=== PATIENT | male | born 1955 | race Caucasian/White ===

== ENCOUNTER 2018-04-19 07:54 | Day surgery (SDC) | payer MEDICARE, OTHER ==
[2018-04-19] MEDS ORDERED: Lactated Ringers 1,000 ML IV SCH (08:00)
[2018-04-19] MEDS ORDERED: Sodium Chloride 0.9% 10 ML Syringe FLUSH PRN (08:00)
[2018-04-19] MEDS ORDERED: Propofol 200 MG/20 ML SDV IV ONE (09:05)
--- NOTE | 2018-04-19 09:37 | PCM.OPNOTE ---
- General Post-Op/Procedure Note Date of Surgery/Procedure: 04/19/18 Operative Procedure(s): c scope with bx Findings: cecal and descending colon polyp sigmoid diverticulosis Pre Op Diagnosis: hx of colon polyps Post-Op Diagnosis: cecal and descending colon polyp. sigmoid diverticulosis Anesthesia Technique: MAC Primary Surgeon: Chin Wilkes Anesthesia Provider: Shashi Rossi Pathology: cecal and descending colon polyp Complications: None Condition: Good Free Text/Narrative:: see dictation
[2018-04-19 14:29] VITALS: BP 133/73
--- NOTE | 2018-04-19 16:20 | OR ---
DATE OF OPERATION: 04/19/2018 SURGEON: Chin Wilkes MD PROCEDURES PERFORMED: Colonoscopy with cold loop and hot loop snare biopsy. PREOPERATIVE DIAGNOSIS: Personal history of colon polyps. POSTOPERATIVE DIAGNOSIS: Cecal and descending colon polyp. INDICATIONS FOR PROCEDURE: This is a 63-year-old white male who presents for a followup colonoscopy due to his previous history of adenomatous colon polyps. DESCRIPTION OF PROCEDURE: After an excellent IV sedation was administered, digital rectal exam was performed. No marked abnormality was noted. Flexible colonoscope was inserted and advanced to the cecum without difficulty. The prep was excellent. The following findings were noted: Ascending colon and cecum, small polypoid lesion, biopsied with cold loop snare and sent for permanent. Transverse colon, unremarkable. Descending colon, near the junction with the sigmoid, a polypoid lesion, biopsied with the hot loop snare and sent for permanent. Sigmoid was unremarkable. Rectum and anus were unremarkable. Colon was deflated. Scope was removed. Patient tolerated the procedure well, taken to recovery in good condition. Results by letter. /[id number] /MODL
== END 2018-04-19 10:45 | disposition home or self-care (01) ==
LOC: FB.SDS 07:54
PROVIDERS: ATTEND Surgery
DX: Z12.11 Encounter for screening for malignant neoplasm of colon (principal); Z86.010 Personal history of colon polyps; K57.30 Diverticulosis of large intestine without perforation or abscess without bleeding; D12.0 Benign neoplasm of cecum; D12.4 Benign neoplasm of descending colon; I10 Essential (primary) hypertension; F17.210 Nicotine dependence, cigarettes, uncomplicated; E78.2 Mixed hyperlipidemia; Z79.82 Long term (current) use of aspirin; Z79.02 Long term (current) use of antithrombotics/antiplatelets; Z79.899 Other long term (current) drug therapy
CPT/HCPCS: 00812-QZ; 88305; J2704; J7120

== ENCOUNTER 2018-10-27 14:17 | Inpatient (IN) | payer MEDICARE, MEDICAID ==
[2018-10-27] MEDS ORDERED: Albuterol/Ipratropium 3.0-0.5 MG/3 ML Neb Soln NEB ONE (14:33)
[2018-10-27] MEDS ORDERED: methylPREDNISolone Sodium Succinate 125 MG/2 ML SDV IVPUSH ONE (14:33)
--- NOTE | 2018-10-27 14:34 | EDM.PDOC ---
ED HPI GENERAL MEDICAL PROBLEM - General Stated Complaint: SOB, WEAKNESS Time Seen by Provider: 10/27/18 14:17 Source of Information: Reports: Patient, EMS History Limitations: Reports: Respiratory Distress - History of Present Illness INITIAL COMMENTS - FREE TEXT/NARRATIVE: 63 y.o.w.m came to the ed due to worsening of his SOB. Pt is on Albuterol inhaler, which does not help. He has no family. Poor historian. No N/V/D, no trauma. No other acute med. issues. BP 91/61 pulse ox 91% on RA Temp 36.8 Pulse 71 RR 18 Onset Date: 10/23/18 Onset Time: 09:00 Duration: Day(s):, Getting Worse Location: Reports: Chest Quality: Reports: Same as Previous Episode Severity: Moderate Improves with: Reports: Medication Worsens with: Reports: Breathing Context: Reports: Other (COPD) Associated Symptoms: Reports: Shortness of Breath - Related Data Allergies Allergy/AdvReac Type Severity Reaction Status Date / Time No Known Allergies Allergy Verified 10/27/18 20:41 Home Meds: Home Meds Aspirin [Ecotrin] 81 mg PO DAILY 03/14/14 [History] Cholecalciferol (Vitamin D3) [Vitamin D3] 5,000 unit PO DAILY 03/14/14 [History] Clopidogrel Bisulfate [Clopidogrel] 75 mg PO DAILY 03/14/14 [History] Gabapentin 300 mg PO DAILY 03/14/14 [History] atorvaSTATin [Lipitor] 20 mg PO BEDTIME 03/28/15 [History] Losartan/Hydrochlorothiazide [Losartan-HCTZ 100-25 MG] 0.5 each PO DAILY [History] Metoprolol Succinate [Toprol XL] 25 mg PO DAILY 04/18/18 [History] Furosemide [Lasix] 20 mg PO DAILY 10/27/18 [History] Past Medical History HEENT History: Reports: Hard of Hearing, Impaired Vision Cardiovascular History: Reports: High Cholesterol, Hypertension Respiratory History: Reports: None Gastrointestinal History: Reports: None, Colon Polyp Genitourinary History: Reports: None 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 Musculoskeletal History: Reports: Back Pain, Chronic, Osteoarthritis Other Musculoskeletal History: SPINAL STENOSIS Neurological History: Reports: None, CVA Psychiatric History: Reports: None Endocrine/Metabolic History: Reports: None Hematologic History: Reports: None Immunologic History: Reports: None Oncologic (Cancer) History: Reports: None Dermatologic History: Reports: None - Past Surgical History Head Surgeries/Procedures: Reports: None HEENT Surgical History: Reports: Cataract Surgery, Eye Surgery GI Surgical History: Reports: Colonoscopy Musculoskeletal Surgical History: Reports: Hip Replacement Social & Family History - Caffeine Use Caffeine Use: Reports: Coffee, Soda ED ROS GENERAL - Review of Systems Review Of Systems: Unable To Obtain ED EXAM, GENERAL - Physical Exam Exam: See Below Exam Limited By: Respiratory Distress General Appearance: Alert, WD/WN, Cachetic Eye Exam: Bilateral Eye: Normal Inspection Ears: Normal External Exam, Normal Canal Ear Exam: Bilateral Ear: Auricle Normal Nose: Normal Inspection, Normal Mucosa, No Blood Throat/Mouth: Normal Inspection Head: Atraumatic, Normocephalic Neck: Normal Inspection, Supple, Non-Tender, Full Range of Motion Respiratory/Chest: No Respiratory Distress Cardiovascular: Normal Peripheral Pulses, Regular Rate, Rhythm, No Edema, No JVD , No Murmur Peripheral Pulses: 2+: Brachial (L) GI/Abdominal: Normal Bowel Sounds (Male) Exam: Deferred Rectal (Males) Exam: Deferred Back Exam: Normal Inspection, Full Range of Motion Extremities: Normal Inspection, Normal Range of Motion, Non-Tender Neurological: Alert, Oriented, CN II-XII Intact, Abnormal Gait Psychiatric: Normal Affect, Normal Mood Skin Exam: Warm, Dry, Intact, Normal Color Lymphatic: No Adenopathy Course - Vital Signs Text/Narrative:: 63 y.o.w.m came to the ed due to worsening of his SOB. Pt is on Albuterol inhaler, which does not help. He has no family. Poor historian. No N/V/D, no trauma. No other acute med. issues. BP 91/61 pulse ox 91% on RA Temp 36.8 Pulse 71 RR 18 PE: Cachectic 63 y.o.w.m with SOB Imaging: COPD Labs: CBC nl except MCV 100 Na 129 Cl 89 K 3.3 BUN 53 Cr 2.3 GFR 29 Impression: COPD exacerbation, Low sodium CRI Tx: Duo Neb, Solumedrol Reexam: Minimal improvement 4.31 pm Consultation: Dr. Moore, Hospitalist: Will see the pt in the ED, accepted the pt and will write the admit orders. Plan: Admit to [facility] Last Recorded V/S: Last Vital Signs Temp 36.2 C 10/29/18 20:10 Pulse 98 10/29/18 20:10 Resp 24 H 10/29/18 20:10 BP 103/64 10/29/18 20:10 Pulse Ox 95 10/29/18 20:10 - Orders/Labs/Meds Orders: Medication Orders Albuterol/Ipratropium (Duoneb 3.0-0.5 Mg/3 Ml) 3 ml NEB QID PRN PRN Reason: Shortness of Breath Last Admin: 10/29/18 14:13 Dose: 3 ml Admin: 10/29/18 09:25 Dose: 3 ml Admin: 10/28/18 13:59 Dose: 3 ml Aspirin (Halfprin) 81 mg PO DAILY [facility] Last Admin: 10/29/18 08:45 Dose: 81 mg Admin: 10/28/18 09:19 Dose: 81 mg Atorvastatin Calcium (Lipitor) 20 mg PO BEDTIME [facility] Last Admin: 10/29/18 20:13 Dose: 20 mg Admin: 10/28/18 20:52 Dose: 20 mg Admin: 10/27/18 22:58 Dose: Cholecalciferol (Vitamin D3) 5,000 units PO DAILY [facility] Last Admin: 10/29/18 09:08 Dose: 5,000 units Admin: 10/28/18 09:19 Dose: 5,000 units Clopidogrel Bisulfate (Plavix) 75 mg PO DAILY [facility] Last Admin: 10/29/18 08:45 Dose: 75 mg Admin: 10/28/18 09:19 Dose: 75 mg Gabapentin (Neurontin) 300 mg PO DAILY [facility] Last Admin: 10/29/18 08:45 Dose: 300 mg Admin: 10/28/18 09:19 Dose: 300 mg Azithromycin 500 mg/ Sodium (Chloride) 250 mls @ 250 mls/hr IV Q24H [facility] Last Admin: 10/29/18 18:37 Dose: 250 mls/hr Melatonin (Melatonin) 9 mg PO BEDTIME [facility] Last Admin: 10/29/18 20:14 Dose: 9 mg Methylprednisolone Sodium Succinate (Solu-Medrol) 125 mg IVPUSH Q8H [facility] Last Admin: 10/29/18 23:00 Dose: 125 mg Admin: 10/29/18 15:35 Dose: 125 mg Admin: 10/29/18 06:06 Dose: 125 mg Admin: 10/28/18 22:37 Dose: 125 mg Admin: 10/28/18 16:08 Dose: 125 mg Admin: 10/28/18 06:21 Dose: 125 mg Admin: 10/27/18 23:14 Dose: 125 mg Potassium Chloride (Klor-Con M20) 20 meq PO DAILY [facility] Last Admin: 10/29/18 09:29 Dose: 20 meq Sodium Chloride (Saline Flush) 10 ml FLUSH ASDIRECTED PRN PRN Reason: Keep Vein Open Last Admin: 10/29/18 19:58 Dose: 10 ml Admin: 10/29/18 18:40 Dose: 10 ml Admin: 10/29/18 15:40 Dose: 10 ml Admin: 10/28/18 16:10 Dose: 10 ml Admin: 10/27/18 15:15 Dose: 10 ml Labs: Laboratory Tests 10/27/18 10/27/18 10/27/18 Range/Units 14:50 14:50 14:50 WBC 11.3 (4.5-12.0) X10-3/uL RBC 4.58 (4.30-5.75) x10(6)uL Hgb 15.3 (13.5-17.8) g/dL Hct 46.0 (30.0-51.3) % MCV 100.5 H (80-96) fL MCH 33.4 (27.7-33.6) pg MCHC 33.2 (32.2-35.4) g/dL RDW 14.3 (11.5-15.5) % Plt Count 222 (125-369) X10(3)uL MPV 8.7 (7.4-10.4) fL Neut % (Auto) 82.3 H (46-82) % Lymph % (Auto) 8.2 L (13-37) % [place] % (Auto) 8.6 (4-12) % Eos % (Auto) 0 L (1.0-5.0) % Baso % (Auto) 1 (0-2) % Neut # (Auto) 9.3 H (1.6-8.3) # Lymph # (Auto) 0.9 (0.6-5.0) # [place] # (Auto) 1.0 (0.0-1.3) # Eos # (Auto) 0.0 (0.0-0.8) # Baso # (Auto) 0.1 (0.0-0.2) # PT 9.7 (8.7-11.1) INR 1.00 (0.89-1.13) Sodium 129 L (135-145) mmol/L Potassium 3.3 L (3.5-5.3) mmol/L Chloride 89 L* (100-110) mmol/L Carbon Dioxide 33 H (21-32) mmol/L BUN 58 H (7-18) mg/dL Creatinine 2.3 H* (0.70-1.30) mg/dL Est Cr Clr Drug Dosing TNP Estimated GFR (MDRD) 29 L (>60) BUN/Creatinine Ratio 25.2 H (9-20) Glucose 124 H (80-116) mg/dL Calcium 9.0 (8.6-10.2) mg/dL Magnesium 2.0 (1.8-2.5) mg/dL Meds: Medications Generic Name Dose Route Start Last Admin Trade Name Freq PRN Reason Stop Dose Admin Albuterol/Ipratropium 3 ml 10/27/18 22:27 10/29/18 14:13 Duoneb 3.0-0.5 Mg/3 Ml NEB 3 ml QID PRN Administration Shortness of Breath Aspirin 81 mg 10/28/18 09:00 10/29/18 08:45 Halfprin PO 81 mg DAILY [facility] Administration Atorvastatin Calcium 20 mg 10/27/18 23:00 10/29/18 20:13 Lipitor PO 20 mg BEDTIME [facility] Administration Cholecalciferol 5,000 units 10/28/18 09:00 10/29/18 09:08 Vitamin D3 PO 5,000 units DAILY [facility] Administration Clopidogrel Bisulfate 75 mg 10/28/18 09:00 10/29/18 08:45 Plavix PO 75 mg DAILY [facility] Administration Gabapentin 300 mg 10/28/18 09:00 10/29/18 08:45 Neurontin PO 300 mg DAILY [facility] Administration Azithromycin 500 mg/ Sodium 250 mls @ 250 mls/hr 10/29/18 18:00 10/29/18 18: 37 Chloride IV 250 mls/hr Q24H [facility] Administration Melatonin 9 mg 10/29/18 21:00 10/29/18 20:14 Melatonin PO 9 mg BEDTIME [facility] Administration Methylprednisolone Sodium Succinate 125 mg 10/27/18 23:00 10/29/18 23:00 Solu-Medrol IVPUSH 125 mg Q8H [facility] Administration Potassium Chloride 20 meq 10/29/18 09:00 10/29/18 09:29 Klor-Con M20 PO 20 meq DAILY [facility] Administration Sodium Chloride 10 ml 10/27/18 15:15 10/29/18 19:58 Saline Flush FLUSH 10 ml ASDIRECTED PRN Administration Keep Vein Open Discontinued Medications Generic Name Dose Route Start Last Admin Trade Name Freq PRN Reason Stop Dose Admin Albuterol/Ipratropium 3 ml 10/27/18 14:33 10/27/18 15:17 Duoneb 3.0-0.5 Mg/3 Ml NEB 10/27/18 14:34 3 ml ONETIME ONE Administration Albuterol/Ipratropium 3 ml 10/27/18 21:00 10/27/18 21:03 Duoneb 3.0-0.5 Mg/3 Ml NEB 3 ml QIDRT [facility] Administration Atorvastatin Calcium 20 mg 10/27/18 21:00 10/27/18 21:04 Lipitor PO Not Given BEDTIME [facility] Iopamidol 75 ml 10/29/18 10:46 10/29/18 11:11 Isovue-370 (76%) IV 10/29/18 10:47 75 ml ASDIRECTED ONE Administration Methylprednisolone Sodium Succinate 125 mg 10/27/18 14:33 10/27/18 15:25 Solu-Medrol IVPUSH 10/27/18 14:34 125 mg ONETIME ONE Administration Methylprednisolone Sodium Succinate 125 mg 10/27/18 16:45 10/27/18 18:55 Solu-Medrol IVPUSH Not Given Q8H [facility] Metoprolol Succinate 25 mg 10/28/18 09:00 Toprol Xl PO DAILY [facility] Non-Formulary Medication 1,000 unit 10/28/18 09:00 Cholecalciferol (Vitamin D3) [Vitamin D3] PO DAILY [facility] Departure - Departure Time of Disposition: 22:00 Disposition: Admitted As Inpatient 65 Condition: Fair Clinical Impression: COPD (chronic obstructive pulmonary disease) case management patient - Discharge Information
[2018-10-27] MEDS: Sodium Chloride 0.9% 10 ML Syringe FLUSH PRN (15:15)
--- NOTE | 2018-10-27 15:34 | CR ---
INDICATION: Short of breath. CHEST: Two AP upright portable views of the chest were obtained 10/27/18 and compared with 03/17/14 and 03/14/14. The heart remains normal in size and shape. The aorta is calcified in the arch area. Flattened diaphragm leaves and hyperaeration suggest COPD. An active infiltrate or effusion was not identified. Buttons are noted overlying the chest. Apparent old healed fracture site proximal humerus. IMPRESSION: 1. No acute process. 2. COPD. 3. ASD aorta. MTDD
[2018-10-27] MEDS ORDERED: methylPREDNISolone Sodium Succinate 125 MG/2 ML SDV IVPUSH SCH (16:45)
[2018-10-27] MEDS ORDERED: atorvaSTATin 40 MG Tab**OWN MED PO SCH (21:00)
[2018-10-27] MEDS ORDERED: Albuterol/Ipratropium 3.0-0.5 MG/3 ML Neb Soln NEB SCH (21:00)
[2018-10-27] MEDS: atorvaSTATin 20 MG Tab PO SCH (22:58)
[2018-10-27] MEDS: methylPREDNISolone Sodium Succinate 125 MG/2 ML SDV IVPUSH SCH (23:14)
[2018-10-28] MEDS: methylPREDNISolone Sodium Succinate 125 MG/2 ML SDV IVPUSH SCH ×3 (06:21→22:37)
--- NOTE | 2018-10-28 08:52 | PCM.HP ---
H&P History of Present Illness - General Date of Service: 10/28/18 Admit Problem/Dx: Admission Diagnosis/Problem Admission Diagnosis/Problem COPD with acute lower respiratory infection Source of Information: Patient History Limitations: Reports: No Limitations - History of Present Illness Initial Comments - Free Text/Narative: Tawana is a 63-year-old male who came to the ER with shortness of breath for a couple days. Associated cough, worse with any ambulation but no chest pain. He has a history of COPD which has been relatively stable until now. He's never needed oxygen. He also has a history of a stroke years ago with no residual neurologic deficits. He has hypertension, and also tobacco abuse,but quit smoking 2 weeks ago. He denies any fever or chills.Tawana lives alone. - Related Data Allergies/Adverse Reactions: Allergies Allergy/AdvReac Type Severity Reaction Status Date / Time No Known Allergies Allergy Verified 10/27/18 20:41 Home Medications: Home Meds Aspirin [Ecotrin] 81 mg PO DAILY 03/14/14 [History] Cholecalciferol (Vitamin D3) [Vitamin D3] 5,000 unit PO DAILY 03/14/14 [History] Clopidogrel Bisulfate [Clopidogrel] 75 mg PO DAILY 03/14/14 [History] Gabapentin 300 mg PO DAILY 03/14/14 [History] atorvaSTATin [Lipitor] 20 mg PO BEDTIME 03/28/15 [History] Losartan/Hydrochlorothiazide [Losartan-HCTZ 100-25 MG] 0.5 each PO DAILY [History] Metoprolol Succinate [Toprol XL] 25 mg PO DAILY 04/18/18 [History] Furosemide [Lasix] 20 mg PO DAILY 10/27/18 [History] Past Medical History HEENT History: Reports: Hard of Hearing, Impaired Vision Cardiovascular History: Reports: High Cholesterol, Hypertension Respiratory History: Reports: COPD Gastrointestinal History: Reports: None, Colon Polyp Genitourinary History: Reports: None 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 Musculoskeletal History: Reports: Back Pain, Chronic, Osteoarthritis Other Musculoskeletal History: SPINAL STENOSIS Neurological History: Reports: CVA Psychiatric History: Reports: None Endocrine/Metabolic History: Reports: None Hematologic History: Reports: Blood Transfusion(s) Immunologic History: Reports: None Oncologic (Cancer) History: Reports: None Dermatologic History: Reports: None - Infectious Disease History Infectious Disease History: Reports: Chicken Pox - Past Surgical History Head Surgeries/Procedures: Reports: None HEENT Surgical History: Reports: Cataract Surgery, Eye Surgery, Oral Surgery Respiratory Surgical History: Reports: Lung Biopsies GI Surgical History: Reports: Colonoscopy Male Surgical History: Reports: Circumcision Musculoskeletal Surgical History: Reports: Hip Replacement Social & Family History - Family History Family Medical History: Noncontributory - Tobacco Use Smoking Status *Q: Current Every Day Smoker Years of Tobacco use: 50 Packs/Tins Daily: 1 Used Tobacco, but Quit: No Month/Year Tobacco Last Used: September 2018 Second Hand Smoke Exposure: No - Caffeine Use Caffeine Use: Reports: Coffee, Soda - Recreational Drug Use Recreational Drug Use: No H&P Review of Systems - Review of Systems: Review Of Systems: ROS reveals no pertinent complaints other than HPI. Exam - Exam Exam: See Below - Vital Signs Vital Signs: Last Vital Signs Temp 98.2 F 10/28/18 04:00 Pulse 94 10/28/18 04:00 Resp 20 10/28/18 04:00 BP 100/65 10/28/18 04:00 Pulse Ox 93 L 10/28/18 04:00 Weight: 58.105 kg - Exam Quality Assessment: Supplemental Oxygen General: Alert HEENT: PERRLA Neck: Supple Lungs: Crackles, Rhonchi Cardiovascular: Regular Rate, Regular Rhythm GI/Abdominal Exam: Normal Bowel Sounds, Soft, Non-Tender, No Organomegaly, No Distention, No Abnormal Bruit, No Mass, Pelvis Stable (Male) Exam: Deferred Rectal (Males) Exam: Deferred Back Exam: Normal Inspection, Full Range of Motion, NT Extremities: Normal Inspection, Normal Range of Motion, Non-Tender, No Pedal Edema, Normal Capillary Refill Skin: Warm, Dry, Intact Neurological: Cranial Nerves Intact, Reflexes Equal Bilateral Neuro Extensive - Mental Status: Alert, Oriented x3, Normal Mood/Affect, Normal Cognition Neuro Extensive - Motor, Sensory, Reflexes: CN II-XII Intact, Normal Gait, Normal Reflexes Psychiatric: Alert, Normal Affect, Normal Mood - Patient Data Lab Results Last 24 hrs: Laboratory Results - last 24 hr 10/27/18 10/27/18 10/27/18 Range/Units 14:50 14:50 14:50 WBC 11.3 (4.5-12.0) X10-3/uL RBC 4.58 (4.30-5.75) x10(6)uL Hgb 15.3 (13.5-17.8) g/dL Hct 46.0 (30.0-51.3) % MCV 100.5 H (80-96) fL MCH 33.4 (27.7-33.6) pg MCHC 33.2 (32.2-35.4) g/dL RDW 14.3 (11.5-15.5) % Plt Count 222 (125-369) X10(3)uL MPV 8.7 (7.4-10.4) fL Neut % (Auto) 82.3 H (46-82) % Lymph % (Auto) 8.2 L (13-37) % [place] % (Auto) 8.6 (4-12) % Eos % (Auto) 0 L (1.0-5.0) % Baso % (Auto) 1 (0-2) % Neut # (Auto) 9.3 H (1.6-8.3) # Lymph # (Auto) 0.9 (0.6-5.0) # [place] # (Auto) 1.0 (0.0-1.3) # Eos # (Auto) 0.0 (0.0-0.8) # Baso # (Auto) 0.1 (0.0-0.2) # Add Manual Diff Neutrophils % (Manual) (46-82) % Lymphocytes % (Manual) (13-37) % Monocytes % (Manual) (4-12) % Macrocytosis PT 9.7 (8.7-11.1) INR 1.00 (0.89-1.13) Sodium 129 L (135-145) mmol/L Potassium 3.3 L (3.5-5.3) mmol/L Chloride 89 L* (100-110) mmol/L Carbon Dioxide 33 H (21-32) mmol/L BUN 58 H (7-18) mg/dL Creatinine 2.3 H* (0.70-1.30) mg/dL Est Cr Clr Drug Dosing TNP Estimated GFR (MDRD) 29 L (>60) BUN/Creatinine Ratio 25.2 H (9-20) Glucose 124 H (80-116) mg/dL Calcium 9.0 (8.6-10.2) mg/dL Phosphorus (2.6-4.6) mg/dL Magnesium 2.0 (1.8-2.5) mg/dL Total Bilirubin (0.1-1.3) mg/dL AST (5-25) IU/L ALT (12-36) U/L Alkaline Phosphatase (56-112) IU/L Troponin I (<0.017-0.056) ng/mL Total Protein (6.0-8.0) g/dL Albumin (3.2-4.6) g/dL Globulin g/dL Albumin/Globulin Ratio 10/28/18 10/28/18 10/28/18 Range/Units 06:30 06:30 06:30 WBC 9.0 (4.5-12.0) X10-3/uL RBC 4.18 L (4.30-5.75) x10(6)uL Hgb 14.4 (13.5-17.8) g/dL Hct 41.9 (30.0-51.3) % MCV 100.1 H (80-96) fL MCH 34.3 H (27.7-33.6) pg MCHC 34.3 (32.2-35.4) g/dL RDW 14.3 (11.5-15.5) % Plt Count 231 (125-369) X10(3)uL MPV 8.4 (7.4-10.4) fL Neut % (Auto) (46-82) % Lymph % (Auto) (13-37) % [place] % (Auto) (4-12) % Eos % (Auto) (1.0-5.0) % Baso % (Auto) (0-2) % Neut # (Auto) (1.6-8.3) # Lymph # (Auto) (0.6-5.0) # [place] # (Auto) (0.0-1.3) # Eos # (Auto) (0.0-0.8) # Baso # (Auto) (0.0-0.2) # Add Manual Diff Yes Neutrophils % (Manual) 92 H (46-82) % Lymphocytes % (Manual) 7 L (13-37) % Monocytes % (Manual) 1 L (4-12) % Macrocytosis Few PT (8.7-11.1) INR (0.89-1.13) Sodium 132 L (135-145) mmol/L Potassium 3.4 L (3.5-5.3) mmol/L Chloride 92 L (100-110) mmol/L Carbon Dioxide 33 H (21-32) mmol/L BUN 60 H (7-18) mg/dL Creatinine 1.8 H (0.70-1.30) mg/dL Est Cr Clr Drug Dosing 34.07 Estimated GFR (MDRD) 38 L (>60) BUN/Creatinine Ratio 33.3 H (9-20) Glucose 180 H (80-116) mg/dL Calcium 8.9 (8.6-10.2) mg/dL Phosphorus 3.5 (2.6-4.6) mg/dL Magnesium 2.1 (1.8-2.5) mg/dL Total Bilirubin 0.7 (0.1-1.3) mg/dL AST 64 H (5-25) IU/L ALT 52 H (12-36) U/L Alkaline Phosphatase 73 (56-112) IU/L Troponin I < 0.017 L (<0.017-0.056) ng/mL Total Protein 7.6 (6.0-8.0) g/dL Albumin 2.9 L (3.2-4.6) g/dL Globulin 4.7 g/dL Albumin/Globulin Ratio 0.6 Result Diagrams: 10/28/18 06:30 10/28/18 06:30 Imaging Impressions Last 24 hrs: XC neg EKG INTERPRETATION Rhythm: NSR - Problem List (1) COPD (chronic obstructive pulmonary disease) SNOMED Code(s): 51057499 ICD Code: J44.9 - CHRONIC OBSTRUCTIVE PULMONARY DISEASE, UNSPECIFIED Status : Acute Current Visit: Yes Qualifiers: COPD type: COPD with acute exacerbation Qualified Code(s): J44.1 - Chronic obstructive pulmonary disease with (acute) exacerbation (2) H/O: CVA (cerebrovascular accident) SNOMED Code(s): 263957654 ICD Code: Z86.73 - PRSNL HX OF TIA (TIA), AND CEREB INFRC W/O RESID DEFICITS Status: Acute Current Visit: Yes (3) Tobacco user SNOMED Code(s): 531755854 ICD Code: Z72.0 - TOBACCO USE Status: Acute Current Visit: No (4) HTN, Essential hypertension SNOMED Code(s): 60384241 ICD Code: I10 - ESSENTIAL (PRIMARY) HYPERTENSION Status: Chronic Current Visit: No (5) Hyperlipidemia SNOMED Code(s): 63135037 ICD Code: E78.5 - HYPERLIPIDEMIA, UNSPECIFIED Status: Chronic Current Visit: No Problem List Initiated/Reviewed/Updated: Yes Orders Last 24hrs: Active Orders 24 hr Category Date Time Status Patient Status [ADT] Routine ADT 10/27/18 16:40 Active Height and Weight [RC] 06 Care 10/27/18 16:39 Active Intake and Output [RC] 06,14,22 Care 10/27/18 16:41 Active Oxygen Therapy [RC] PRN Care 10/27/18 16:40 Active RT Aerosol Therapy [RC] ASDIRECTED Care 10/27/18 14:33 Active Vital Signs [RC] 08,12,16,20,00,04 Care 10/27/18 16:40 Active Albuterol/Ipratropium [DuoNeb 3.0-0.5 MG/3 ML] Med 10/27/18 22:27 Active 3 ml NEB QID PRN Aspirin [Halfprin] Med 10/28/18 09:00 Active 81 mg PO DAILY Cholecalciferol (Vitamin D3) [Vitamin D3] Med 10/28/18 09:00 Active 1,000 unit PO DAILY Clopidogrel [Plavix] Med 10/28/18 09:00 Active 75 mg PO DAILY Gabapentin [Neurontin] Med 10/28/18 09:00 Active 300 mg PO DAILY Metoprolol Succinate [Toprol XL] Med 10/28/18 09:00 Active 25 mg PO DAILY Sodium Chloride 0.9% [Saline Flush] Med 10/27/18 15:15 Active 10 ml FLUSH ASDIRECTED PRN atorvaSTATin [Lipitor] Med 10/27/18 23:00 Active 20 mg PO BEDTIME methylPREDNISolone Sod Succ [Solu-MEDROL] Med 10/27/18 23:00 Active 125 mg IVPUSH Q8H Peripheral IV Insertion Adult [OM.PC] Routine Oth 10/27/18 15:15 Ordered Resuscitation Status Routine Resus Stat 10/27/18 16:39 Ordered Medication Orders Albuterol/Ipratropium (Duoneb 3.0-0.5 Mg/3 Ml) 3 ml NEB QID PRN PRN Reason: Shortness of Breath Aspirin (Halfprin) 81 mg PO DAILY [facility] Atorvastatin Calcium (Lipitor) 20 mg PO BEDTIME [facility] Last Admin: 10/27/18 22:58 Dose: Clopidogrel Bisulfate (Plavix) 75 mg PO DAILY [facility] Gabapentin (Neurontin) 300 mg PO DAILY [facility] Methylprednisolone Sodium Succinate (Solu-Medrol) 125 mg IVPUSH Q8H [facility] Last Admin: 10/28/18 06:21 Dose: 125 mg Admin: 10/27/18 23:14 Dose: 125 mg Metoprolol Succinate (Toprol Xl) 25 mg PO DAILY [facility] Non-Formulary Medication (Cholecalciferol (Vitamin D3) [Vitamin D3]) 1,000 unit PO DAILY [facility] Sodium Chloride (Saline Flush) 10 ml FLUSH ASDIRECTED PRN PRN Reason: Keep Vein Open Last Admin: 10/27/18 15:15 Dose: 10 ml Assessment/Plan Comment:: Admit for SVN, supplemental oxygen by nasal cannula, and IV Solu-Medrol. Will hold off on his antihypertensives because of a low blood pressure.
[2018-10-28] MEDS ORDERED: Metoprolol Succinate 25 MG Tab.ER PO SCH (09:00)
[2018-10-28] MEDS ORDERED: Non-Formulary Medication 1 Each (Cholecalciferol (Vitamin D3) [Vitamin D3] 1,000 UNIT) PO SCH (09:00)
[2018-10-28] MEDS: Gabapentin 300 MG Cap PO SCH (09:19)
[2018-10-28] MEDS: Aspirin 81 MG Tab.EC PO SCH (09:19)
[2018-10-28] MEDS: Clopidogrel 75 MG Tab PO SCH (09:19)
[2018-10-28] MEDS: Cholecalciferol (Vitamin D3) 1,000 Unit Tab PO SCH (09:19)
[2018-10-28] MEDS: Albuterol/Ipratropium 3.0-0.5 MG/3 ML Neb Soln NEB PRN (13:59)
[2018-10-28] MEDS: Sodium Chloride 0.9% 10 ML Syringe FLUSH PRN (16:10)
[2018-10-28] MEDS: atorvaSTATin 20 MG Tab PO SCH (20:52)
[2018-10-29] MEDS: methylPREDNISolone Sodium Succinate 125 MG/2 ML SDV IVPUSH SCH ×3 (06:06→23:00)
[2018-10-29] MEDS: Gabapentin 300 MG Cap PO SCH (08:45)
[2018-10-29] MEDS: Aspirin 81 MG Tab.EC PO SCH (08:45)
[2018-10-29] MEDS: Clopidogrel 75 MG Tab PO SCH (08:45)
--- NOTE | 2018-10-29 08:58 | PCM.PN ---
- General Info Date of Service: 10/29/18 Subjective Update: Tawana feels better and even wants to go home today. However,he still tends to get short of breath with speech and ambulation. Functional Status: Reports: Pain Controlled - Review of Systems General: Reports: Weakness Pulmonary: Reports: Shortness of Breath, Cough Cardiovascular: Reports: No Symptoms Gastrointestinal: Reports: No Symptoms Genitourinary: Reports: No Symptoms - Patient Data Vitals - Most Recent: Last Vital Signs Temp 97.0 F 10/29/18 04:00 Pulse 76 10/29/18 04:00 Resp 20 10/29/18 04:00 BP 107/62 10/29/18 04:00 Pulse Ox 93 L 10/29/18 04:00 Weight - Most Recent: 59.421 kg I&O - Last 24 Hours: Intake & Output 10/28/18 10/29/18 10/29/18 22:59 06:59 14:59 Intake Total 540 540 300 Output Total 425 450 Balance 115 90 300 Lab Results Last 24 Hours: Laboratory Results - last 24 hr 10/29/18 10/29/18 10/29/18 Range/Units 05:55 05:55 05:55 WBC 12.6 H (4.5-12.0) X10-3/uL RBC 3.99 L (4.30-5.75) x10(6)uL Hgb 13.6 (13.5-17.8) g/dL Hct 40.0 (30.0-51.3) % MCV 100.4 H (80-96) fL MCH 34.1 H (27.7-33.6) pg MCHC 34.0 (32.2-35.4) g/dL RDW 14.4 (11.5-15.5) % Plt Count 260 (125-369) X10(3)uL MPV 8.5 (7.4-10.4) fL Add Manual Diff Yes Neutrophils % (Manual) 88 H (46-82) % Lymphocytes % (Manual) 7 L (13-37) % Monocytes % (Manual) 5 (4-12) % Macrocytosis Few Sodium 134 L (135-145) mmol/L Potassium 3.1 L (3.5-5.3) mmol/L Chloride 98 L D (100-110) mmol/L Carbon Dioxide 30 (21-32) mmol/L BUN 46 H D (7-18) mg/dL Creatinine 1.4 H (0.70-1.30) mg/dL Est Cr Clr Drug Dosing 44.80 mL/min Estimated GFR (MDRD) 51 L (>60) BUN/Creatinine Ratio 32.9 H (9-20) Glucose 156 H (80-116) mg/dL Calcium 8.7 (8.6-10.2) mg/dL Total Bilirubin 0.4 (0.1-1.3) mg/dL AST 45 H D (5-25) IU/L ALT 45 H D (12-36) U/L Alkaline Phosphatase 96 (56-112) IU/L NT-Pro-B Natriuret Pep 1113 H* (<=125) pg/mL Total Protein 7.1 (6.0-8.0) g/dL Albumin 2.8 L (3.2-4.6) g/dL Globulin 4.3 g/dL Albumin/Globulin Ratio 0.7 Med Orders - Current: Current Medications Albuterol/Ipratropium (Duoneb 3.0-0.5 Mg/3 Ml) 3 ml NEB QID PRN PRN Reason: Shortness of Breath Last Admin: 10/28/18 13:59 Dose: 3 ml Aspirin (Halfprin) 81 mg PO DAILY [facility] Last Admin: 10/29/18 08:45 Dose: 81 mg Atorvastatin Calcium (Lipitor) 20 mg PO BEDTIME [facility] Last Admin: 10/28/18 20:52 Dose: 20 mg Cholecalciferol (Vitamin D3) 5,000 units PO DAILY [facility] Last Admin: 10/28/18 09:19 Dose: 5,000 units Clopidogrel Bisulfate (Plavix) 75 mg PO DAILY [facility] Last Admin: 10/29/18 08:45 Dose: 75 mg Gabapentin (Neurontin) 300 mg PO DAILY [facility] Last Admin: 10/29/18 08:45 Dose: 300 mg Methylprednisolone Sodium Succinate (Solu-Medrol) 125 mg IVPUSH Q8H [facility] Last Admin: 10/29/18 06:06 Dose: 125 mg Potassium Chloride (Klor-Con M20) 20 meq PO DAILY [facility] Sodium Chloride (Saline Flush) 10 ml FLUSH ASDIRECTED PRN PRN Reason: Keep Vein Open Last Admin: 10/28/18 16:10 Dose: 10 ml Discontinued Medications Albuterol/Ipratropium (Duoneb 3.0-0.5 Mg/3 Ml) 3 ml NEB ONETIME ONE Stop: 10/27/18 14:34 Last Admin: 10/27/18 15:17 Dose: 3 ml Albuterol/Ipratropium (Duoneb 3.0-0.5 Mg/3 Ml) 3 ml NEB QIDRT [facility] Last Admin: 10/27/18 21:03 Dose: 3 ml Atorvastatin Calcium (Lipitor) 20 mg PO BEDTIME [facility] Last Admin: 10/27/18 21:04 Dose: Not Given Methylprednisolone Sodium Succinate (Solu-Medrol) 125 mg IVPUSH ONETIME ONE Stop: 10/27/18 14:34 Last Admin: 10/27/18 15:25 Dose: 125 mg Methylprednisolone Sodium Succinate (Solu-Medrol) 125 mg IVPUSH Q8H [facility] Last Admin: 10/27/18 18:55 Dose: Not Given Metoprolol Succinate (Toprol Xl) 25 mg PO DAILY [facility] Non-Formulary Medication (Cholecalciferol (Vitamin D3) [Vitamin D3]) 1,000 unit PO DAILY [facility] - Exam Quality Assessment: Supplemental Oxygen General: Alert Neck: Supple Lungs: Rales Cardiovascular: Regular Rate GI/Abdominal Exam: Normal Bowel Sounds - Problem List & Annotations (1) COPD (chronic obstructive pulmonary disease) SNOMED Code(s): 29914880 Code(s): J44.9 - CHRONIC OBSTRUCTIVE PULMONARY DISEASE, UNSPECIFIED Status : Acute Current Visit: Yes Qualifiers: COPD type: COPD with acute exacerbation Qualified Code(s): J44.1 - Chronic obstructive pulmonary disease with (acute) exacerbation (2) H/O: CVA (cerebrovascular accident) SNOMED Code(s): 410438442 Code(s): Z86.73 - PRSNL HX OF TIA (TIA), AND CEREB INFRC W/O RESID DEFICITS Status: Acute Current Visit: Yes (3) Tobacco user SNOMED Code(s): 839539751 Code(s): Z72.0 - TOBACCO USE Status: Acute Current Visit: No (4) HTN, Essential hypertension SNOMED Code(s): 51095137 Code(s): I10 - ESSENTIAL (PRIMARY) HYPERTENSION Status: Chronic Current Visit: No (5) Hyperlipidemia SNOMED Code(s): 84082664 Code(s): E78.5 - HYPERLIPIDEMIA, UNSPECIFIED Status: Chronic Current Visit: No (6) Hypokalemia SNOMED Code(s): 94874206 Code(s): E87.6 - HYPOKALEMIA Status: Acute Current Visit: Yes - Problem List Review Problem List Initiated/Reviewed/Updated: Yes - My Orders Last 24 Hours: My Active Orders 10/28/18 09:00 Aspirin [Halfprin] 81 mg PO DAILY Cholecalciferol (Vitamin D3) [Vitamin D3] 5,000 units PO DAILY Clopidogrel [Plavix] 75 mg PO DAILY Gabapentin [Neurontin] 300 mg PO DAILY 10/29/18 08:55 Chest w Cont [CT] Routine 10/29/18 09:00 Potassium Chloride [Klor-Con M20] 20 meq PO DAILY 10/30/18 05:11 BASIC METABOLIC PANEL,BMP [CHEM] AM CBC WITH AUTO DIFF [HEME] AM - Plan Plan:: CT scan chest today. Continue Meds. Replace Potassium.Consider DC tomorrow
[2018-10-29] MEDS: Cholecalciferol (Vitamin D3) 1,000 Unit Tab PO SCH (09:08)
[2018-10-29] MEDS: Albuterol/Ipratropium 3.0-0.5 MG/3 ML Neb Soln NEB PRN ×2 (09:25→14:13)
[2018-10-29] MEDS: Potassium Chloride 20 MEQ Tab.ER PO SCH (09:29)
[2018-10-29] MEDS ORDERED: Iopamidol 755 Mg/ML 75 ML Bottle IV ONE (10:46)
[2018-10-29] MEDS: Sodium Chloride 0.9% 10 ML Syringe FLUSH PRN ×3 (15:40→19:58)
[2018-10-29] MEDS ORDERED: Azithromycin 500 MG in Sodium Chloride 0.9% 250 ML IV SCH (18:00)
[2018-10-29] MEDS: atorvaSTATin 20 MG Tab PO SCH (20:13)
[2018-10-29] MEDS ORDERED: Melatonin 3 MG Tab PO SCH (21:00)
[2018-10-30] MEDS: methylPREDNISolone Sodium Succinate 125 MG/2 ML SDV IVPUSH SCH (06:16)
[2018-10-30] MEDS ORDERED: Azithromycin 500 MG in Sodium Chloride 0.9% 250 ML IV SCH ×2 (07:18→18:00)
[2018-10-30 08:32] VITALS: BP 111/66
--- NOTE | 2018-10-30 08:32 | PCM.PN ---
- General Info Date of Service: 10/30/18 Subjective Update: Doing much better today.Wheezing,and SOB has improved.He feels stronger.slept well. Functional Status: Reports: Pain Controlled - Review of Systems Cardiovascular: Reports: No Symptoms Gastrointestinal: Reports: No Symptoms Genitourinary: Reports: No Symptoms Musculoskeletal: Reports: No Symptoms - Patient Data Vitals - Most Recent: Last Vital Signs Temp 97.4 F 10/30/18 04:00 Pulse 72 10/30/18 04:00 Resp 20 10/30/18 04:00 BP 106/61 10/30/18 04:00 Pulse Ox 92 L 10/30/18 04:00 Weight - Most Recent: 59.602 kg I&O - Last 24 Hours: Intake & Output 10/29/18 10/30/18 10/30/18 22:59 06:59 14:59 Intake Total 320 400 Output Total 350 325 Balance -30 75 Lab Results Last 24 Hours: Laboratory Results - last 24 hr 10/30/18 10/30/18 Range/Units 06:17 06:17 WBC 9.7 (4.5-12.0) X10-3/uL RBC 3.75 L (4.30-5.75) x10(6)uL Hgb 12.5 L (13.5-17.8) g/dL Hct 37.3 (30.0-51.3) % MCV 99.4 H (80-96) fL MCH 33.3 (27.7-33.6) pg MCHC 33.5 (32.2-35.4) g/dL RDW 14.7 (11.5-15.5) % Plt Count 272 (125-369) X10(3)uL MPV 8.2 (7.4-10.4) fL Add Manual Diff Yes Neutrophils % (Manual) 87 H (46-82) % Band Neutrophils % 3 (0-6) % Lymphocytes % (Manual) 5 L (13-37) % Monocytes % (Manual) 5 (4-12) % Sodium 139 (135-145) mmol/L Potassium 3.5 (3.5-5.3) mmol/L Chloride 100 (100-110) mmol/L Carbon Dioxide 31 (21-32) mmol/L BUN 32 H D (7-18) mg/dL Creatinine 1.2 (0.70-1.30) mg/dL Est Cr Clr Drug Dosing 52.43 mL/min Estimated GFR (MDRD) > 60 (>60) BUN/Creatinine Ratio 26.7 H (9-20) Glucose 139 H (80-116) mg/dL Calcium 9.0 (8.6-10.2) mg/dL Med Orders - Current: Current Medications Albuterol/Ipratropium (Duoneb 3.0-0.5 Mg/3 Ml) 3 ml NEB QID PRN PRN Reason: Shortness of Breath Last Admin: 10/29/18 14:13 Dose: 3 ml Aspirin (Halfprin) 81 mg PO DAILY [facility] Last Admin: 10/29/18 08:45 Dose: 81 mg Atorvastatin Calcium (Lipitor) 20 mg PO BEDTIME [facility] Last Admin: 10/29/18 20:13 Dose: 20 mg Cholecalciferol (Vitamin D3) 5,000 units PO DAILY [facility] Last Admin: 10/29/18 09:08 Dose: 5,000 units Clopidogrel Bisulfate (Plavix) 75 mg PO DAILY [facility] Last Admin: 10/29/18 08:45 Dose: 75 mg Gabapentin (Neurontin) 300 mg PO DAILY [facility] Last Admin: 10/29/18 08:45 Dose: 300 mg Azithromycin 500 mg/ Sodium (Chloride) 250 mls @ 250 mls/hr IV Q24H [facility] Melatonin (Melatonin) 9 mg PO BEDTIME [facility] Last Admin: 10/29/18 20:14 Dose: 9 mg Methylprednisolone Sodium Succinate (Solu-Medrol) 125 mg IVPUSH Q8H [facility] Last Admin: 10/30/18 06:16 Dose: 125 mg Potassium Chloride (Klor-Con M20) 20 meq PO DAILY [facility] Last Admin: 10/29/18 09:29 Dose: 20 meq Sodium Chloride (Saline Flush) 10 ml FLUSH ASDIRECTED PRN PRN Reason: Keep Vein Open Last Admin: 10/29/18 19:58 Dose: 10 ml Discontinued Medications Albuterol/Ipratropium (Duoneb 3.0-0.5 Mg/3 Ml) 3 ml NEB ONETIME ONE Stop: 10/27/18 14:34 Last Admin: 10/27/18 15:17 Dose: 3 ml Albuterol/Ipratropium (Duoneb 3.0-0.5 Mg/3 Ml) 3 ml NEB QIDRT [facility] Last Admin: 10/27/18 21:03 Dose: 3 ml Atorvastatin Calcium (Lipitor) 20 mg PO BEDTIME [facility] Last Admin: 10/27/18 21:04 Dose: Not Given Azithromycin 500 mg/ Sodium (Chloride) 250 mls @ 250 mls/hr IV Q24H [facility] Last Admin: 10/29/18 18:37 Dose: 250 mls/hr Iopamidol (Isovue-370 (76%)) 75 ml IV ASDIRECTED ONE Stop: 10/29/18 10:47 Last Admin: 10/29/18 11:11 Dose: 75 ml Methylprednisolone Sodium Succinate (Solu-Medrol) 125 mg IVPUSH ONETIME ONE Stop: 10/27/18 14:34 Last Admin: 10/27/18 15:25 Dose: 125 mg Methylprednisolone Sodium Succinate (Solu-Medrol) 125 mg IVPUSH Q8H [facility] Last Admin: 10/27/18 18:55 Dose: Not Given Metoprolol Succinate (Toprol Xl) 25 mg PO DAILY [facility] Non-Formulary Medication (Cholecalciferol (Vitamin D3) [Vitamin D3]) 1,000 unit PO DAILY [facility] - Exam General: Alert, Oriented HEENT: Pupils Equal Neck: Supple Lungs: Decreased Breath Sounds Cardiovascular: Regular Rate - Problem List & Annotations (1) COPD (chronic obstructive pulmonary disease) SNOMED Code(s): 75503359 Code(s): J44.9 - CHRONIC OBSTRUCTIVE PULMONARY DISEASE, UNSPECIFIED Status : Acute Current Visit: Yes Qualifiers: COPD type: COPD with acute exacerbation Qualified Code(s): J44.1 - Chronic obstructive pulmonary disease with (acute) exacerbation (2) H/O: CVA (cerebrovascular accident) SNOMED Code(s): 079168440 Code(s): Z86.73 - PRSNL HX OF TIA (TIA), AND CEREB INFRC W/O RESID DEFICITS Status: Acute Current Visit: Yes (3) Tobacco user SNOMED Code(s): 725694424 Code(s): Z72.0 - TOBACCO USE Status: Acute Current Visit: No (4) HTN, Essential hypertension SNOMED Code(s): 56619851 Code(s): I10 - ESSENTIAL (PRIMARY) HYPERTENSION Status: Chronic Current Visit: No (5) Hyperlipidemia SNOMED Code(s): 56286210 Code(s): E78.5 - HYPERLIPIDEMIA, UNSPECIFIED Status: Chronic Current Visit: No (6) Hypokalemia SNOMED Code(s): 19913119 Code(s): E87.6 - HYPOKALEMIA Status: Acute Current Visit: Yes (7) CAP (community acquired pneumonia) SNOMED Code(s): 745520715 Code(s): J18.9 - PNEUMONIA, UNSPECIFIED ORGANISM Status: Acute Current Visit: Yes Qualifiers: Lung location: unspecified part of lung - Problem List Review Problem List Initiated/Reviewed/Updated: Yes - My Orders Last 24 Hours: My Active Orders 10/29/18 08:55 Chest w Cont [CT] Routine 10/29/18 09:00 Potassium Chloride [Klor-Con M20] 20 meq PO DAILY 10/29/18 21:00 Melatonin 9 mg PO BEDTIME 10/30/18 18:00 Azithromycin [Zithromax] 500 mg Sodium Chloride 0.9% [Normal Saline] 250 ml IV Q24H - Plan Plan:: CT scan showed inflammatory versus infectious process in the lungs. I elected to treat him with azithromycin, which he got the first dose yesterday. I will discharge him home on a today, along with prednisone, albuterol and asked him to see his PCP next week
[2018-10-30] MEDS: Aspirin 81 MG Tab.EC PO SCH (08:38)
[2018-10-30] MEDS: Potassium Chloride 20 MEQ Tab.ER PO SCH (08:38)
[2018-10-30] MEDS: Clopidogrel 75 MG Tab PO SCH (08:38)
[2018-10-30] MEDS: Cholecalciferol (Vitamin D3) 1,000 Unit Tab PO SCH (08:38)
[2018-10-30] MEDS: Gabapentin 300 MG Cap PO SCH (08:41)
--- NOTE | 2018-10-31 13:03 | DISCH ---
DISCHARGE DATE: 10/30/2018 REASON FOR ADMISSION: 1. Chronic obstructive pulmonary disease exacerbation. 2. Hypertension. 3. Acute renal insufficiency. 4. History of tobacco abuse. 5. History of stroke. DISCHARGE DIAGNOSES: 1. Chronic obstructive pulmonary disease exacerbation. 2. Community-acquired pneumonia. 3. History of stroke. 4. History of tobacco abuse. 5. Acute renal insufficiency. 6. Hypertension. BRIEF HISTORY AND HOSPITAL COURSE: This is a 63-year-old male who came with shortness of breath and cough for 2 days. The initial x-ray did not show any infection. However, he was hypoxic, despite SVN treatments. A CT revealed a tree-bud appearance, suggestive of an infectious process. As such, azithromycin was started the day before discharge. He was off oxygen by that time and ambulating by himself. I stopped his hydrochlorothiazide and initially Lasix because of acute renal insufficiency with his creatinine being 2.3 on admission, and on discharge it was 1.2. DISCHARGE MEDICATIONS: I sent him home on: 1. Azithromycin 250 mg a day for 4 days. 2. Prednisone 20 mg b.i.d. for 5 days. 3. Albuterol to use p.r.n. 4. Advair Diskus 250 mcg two puffs b.i.d. 5. Melatonin 9 mg at bedtime. 6. Metoprolol 25 mg a day. 7. Lasix 20 mg once a day. FOLLOWUP: He is advised to see Dr. Mehta within 1 week to evaluate his blood pressure and basic panel. I spent more than 35 minutes in the discharge of this patient. /[id number] DEACON/ANNMARIE
== END 2018-10-30 09:55 | disposition home health service (06) | DRG 190 ==
LOC: FB.ED 14:17 → FB.MS 16:48
PROVIDERS: ADMIT Family Medicine; ATTEND Family Medicine
DX: J44.0 Chronic obstructive pulmonary disease with (acute) lower respiratory infection (principal); J18.9 Pneumonia, unspecified organism; E87.1 Hypo-osmolality and hyponatremia; J44.1 Chronic obstructive pulmonary disease with (acute) exacerbation; I12.9 Hypertensive chronic kidney disease with stage 1 through stage 4 chronic kidney disease, or unspecified chronic kidney disease; N18.9 Chronic kidney disease, unspecified; Z72.0 Tobacco use; R06.02 Shortness of breath; R53.1 Weakness; E87.6 Hypokalemia; E78.5 Hyperlipidemia, unspecified; Z86.73 Personal history of transient ischemic attack (TIA), and cerebral infarction without residual deficits; M19.90 Unspecified osteoarthritis, unspecified site; M54.9 Dorsalgia, unspecified; G89.29 Other chronic pain; H54.7 Unspecified visual loss; H91.90 Unspecified hearing loss, unspecified ear; M48.00 Spinal stenosis, site unspecified; Z86.010 Personal history of colon polyps; Z96.649 Presence of unspecified artificial hip joint; Z79.82 Long term (current) use of aspirin; Z79.52 Long term (current) use of systemic steroids
CPT/HCPCS: 36415; 71045; 71260; 80048; 80053; 83735; 83880; 84100; 84484; 85025; 85610; 94150; 94640; 96374; 99285; 99285-25; A9270-GY; J0456; J2930; J7050; J7620-GY; Q9967

== ENCOUNTER 2018-10-31 14:51 | Emergency (ER) | payer MEDICARE, MEDICAID ==
[2018-10-31] MEDS: Albuterol/Ipratropium 3.0-0.5 MG/3 ML Neb Soln NEB ONE (15:01)
--- NOTE | 2018-10-31 15:32 | EDM.PDOC ---
ED HPI GENERAL MEDICAL PROBLEM - General Chief Complaint: Respiratory Problem Stated Complaint: SOB Time Seen by Provider: 10/31/18 15:00 Source of Information: Reports: Patient, EMS, Old Records History Limitations: Reports: No Limitations - History of Present Illness INITIAL COMMENTS - FREE TEXT/NARRATIVE: Tawana returns to [facility] ED by EMS with sxs of dyspnea, some cough, and malaise. He was discharged from [facility] yesterday with pneumonia on therapies including Azithromycin, Albuterol MDI and Prednisone which were not filled. He denies chest pain, palpitations, orthopnea or PND. - Related Data Allergies Allergy/AdvReac Type Severity Reaction Status Date / Time No Known Allergies Allergy Verified 10/31/18 14:58 Home Meds: Home Meds Aspirin [Ecotrin] 81 mg PO DAILY 03/14/14 [History] Cholecalciferol (Vitamin D3) [Vitamin D3] 5,000 unit PO DAILY 03/14/14 [History] Clopidogrel Bisulfate [Clopidogrel] 75 mg PO DAILY 03/14/14 [History] Gabapentin 300 mg PO DAILY 03/14/14 [History] atorvaSTATin [Lipitor] 20 mg PO BEDTIME 03/28/15 [History] Metoprolol Succinate [Toprol XL] 25 mg PO DAILY 04/18/18 [History] Albuterol Sulfate [Albuterol Sulfate Hfa] 1 inh IH QID PRN #1 hfa.aer.ad [Rx] Azithromycin [Zithromax] 250 mg PO DAILY #4 tab 10/30/18 [Rx] Fluticasone/Salmeterol [Advair 250-50 Diskus] 2 each IH BID #1 disk.w.dev [Rx] Melatonin 9 mg PO BEDTIME #30 tablet 10/30/18 [Rx] predniSONE 20 mg PO BID #10 tab 10/30/18 [Rx] Past Medical History HEENT History: Reports: Hard of Hearing, Impaired Vision Cardiovascular History: Reports: High Cholesterol, Hypertension Respiratory History: Reports: COPD Gastrointestinal History: Reports: None, Colon Polyp Genitourinary History: Reports: None 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 Musculoskeletal History: Reports: Back Pain, Chronic, Osteoarthritis Other Musculoskeletal History: SPINAL STENOSIS Neurological History: Reports: None, CVA Psychiatric History: Reports: None Endocrine/Metabolic History: Reports: None Hematologic History: Reports: None Immunologic History: Reports: None Oncologic (Cancer) History: Reports: None Dermatologic History: Reports: None - Infectious Disease History Infectious Disease History: Reports: Chicken Pox - Past Surgical History Head Surgeries/Procedures: Reports: None HEENT Surgical History: Reports: Cataract Surgery, Eye Surgery GI Surgical History: Reports: Colonoscopy Musculoskeletal Surgical History: Reports: Hip Replacement Social & Family History - Family History Family Medical History: Noncontributory - Tobacco Use Smoking Status *Q: Former Smoker Used Tobacco, but Quit: Yes Month/Year Tobacco Last Used: 4 - Caffeine Use Caffeine Use: Reports: None - Recreational Drug Use Recreational Drug Use: No ED ROS GENERAL - Review of Systems Review Of Systems: See Below Constitutional: Reports: Malaise, Weakness HEENT: Reports: No Symptoms Respiratory: Reports: Shortness of Breath, Cough Cardiovascular: Reports: Dyspnea on Exertion Endocrine: Reports: No Symptoms GI/Abdominal: Reports: No Symptoms : Reports: No Symptoms Musculoskeletal: Reports: No Symptoms Skin: Reports: No Symptoms Neurological: Reports: No Symptoms Psychiatric: Reports: No Symptoms Hematologic/Lymphatic: Reports: No Symptoms Immunologic: Reports: No Symptoms ED EXAM, GENERAL - Physical Exam Exam: See Below Exam Limited By: No Limitations General Appearance: Alert, WD/WN, No Apparent Distress, Anxious Eye Exam: Bilateral Eye: EOMI, Normal Inspection, PERRL Ears: Normal External Exam Nose: Normal Inspection Throat/Mouth: Normal Inspection, Normal Lips, Normal Oropharynx, Normal Voice Head: Normocephalic Neck: Normal Inspection, Supple, Non-Tender Respiratory/Chest: Decreased Breath Sounds, Crackles, Rhonchi, Accessory Muscle Use, Prolonged Expiration Cardiovascular: Regular Rate, Rhythm, No Murmur GI/Abdominal: Normal Bowel Sounds, Soft, Non-Tender, No Distention, No Mass (Male) Exam: Deferred Rectal (Males) Exam: Deferred Back Exam: Normal Inspection Extremities: Normal Inspection, Normal Range of Motion Neurological: Alert, Oriented, CN II-XII Intact, No Motor/Sensory Deficits Psychiatric: Normal Mood, Flat Affect Skin Exam: Warm, Dry, Intact, Normal Color, No Rash Lymphatic: No Adenopathy Course - Vital Signs Text/Narrative:: Following assessment at the [facility] ED, I administered a DuoNeb with some improvement in respiratory status. His resting 02 sat 97% on RA. Last Recorded V/S: Last Vital Signs Temp 36.8 C 10/31/18 14:51 Pulse 85 10/31/18 14:51 Resp 20 10/31/18 14:51 BP 162/103 H 10/31/18 14:51 Pulse Ox 99 10/31/18 14:51 - Orders/Labs/Meds Orders: Active Orders 24 hr Category Date Time Status RT Aerosol Therapy [RC] ASDIRECTED Care 10/31/18 14:56 Active C-REACTIVE PROTEIN [CHEM] Stat Lab 10/31/18 15:18 Received CBC WITH AUTO DIFF [HEME] Stat Lab 10/31/18 15:18 Results PRO B-TYPE NATRIUR PEPT,BNPPRO [CHEM] Stat Lab 10/31/18 15:18 Received Labs: Laboratory Tests 10/31/18 10/31/18 Range/Units 15:18 15:18 WBC 10.8 (4.5-12.0) X10-3/uL RBC 4.33 (4.30-5.75) x10(6)uL Hgb 14.9 (13.5-17.8) g/dL Hct 43.7 (30.0-51.3) % MCV 100.9 H (80-96) fL MCH 34.3 H (27.7-33.6) pg MCHC 34.0 (32.2-35.4) g/dL RDW 14.4 (11.5-15.5) % Plt Count 318 (125-369) X10(3)uL MPV 7.6 (7.4-10.4) fL Add Manual Diff Yes Sodium 139 (135-145) mmol/L Potassium 3.6 (3.5-5.3) mmol/L Chloride 99 L (100-110) mmol/L Carbon Dioxide 34 H (21-32) mmol/L BUN 29 H (7-18) mg/dL Creatinine 1.2 (0.70-1.30) mg/dL Est Cr Clr Drug Dosing 52.27 mL/min Estimated GFR (MDRD) > 60 (>60) BUN/Creatinine Ratio 24.2 H (9-20) Glucose 94 (80-116) mg/dL Calcium 8.9 (8.6-10.2) mg/dL Meds: Medications Discontinued Medications Generic Name Dose Route Start Last Admin Trade Name Freq PRN Reason Stop Dose Admin Albuterol/Ipratropium 3 ml 10/31/18 14:56 10/31/18 15:01 Duoneb 3.0-0.5 Mg/3 Ml NEB 10/31/18 14:57 3 ml ONETIME ONE Administration Departure - Departure Time of Disposition: 16:01 Disposition: Home, Self-Care 01 Condition: Fair Clinical Impression: COPD (chronic obstructive pulmonary disease) Qualifiers: COPD type: COPD with acute exacerbation Qualified Code(s): J44.1 - Chronic obstructive pulmonary disease with (acute) exacerbation - Discharge Information *PRESCRIPTION DRUG MONITORING PROGRAM REVIEWED*: Not Applicable *COPY OF PRESCRIPTION DRUG MONITORING REPORT IN PATIENT MAURICIO: Not Applicable Referrals: Efra Mehta MD [Primary Care Provider] - Forms: ED Department Discharge - Problem List & Annotations (1) COPD (chronic obstructive pulmonary disease) SNOMED Code(s): 63395128 Code(s): J44.9 - CHRONIC OBSTRUCTIVE PULMONARY DISEASE, UNSPECIFIED Status : Acute Current Visit: Yes Annotation/Comment:: 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 Qualifiers: COPD type: COPD with acute exacerbation Qualified Code(s): J44.1 - Chronic obstructive pulmonary disease with (acute) exacerbation - Problem List Review Problem List Initiated/Reviewed/Updated: Yes - My Orders Last 24 Hours: My Active Orders 10/31/18 14:56 RT Aerosol Therapy [RC] ASDIRECTED 10/31/18 15:18 C-REACTIVE PROTEIN [CHEM] Stat CBC WITH AUTO DIFF [HEME] Stat PRO B-TYPE NATRIUR PEPT,BNPPRO [CHEM] Stat - Assessment/Plan Last 24 Hours: My Active Orders 10/31/18 14:56 RT Aerosol Therapy [RC] ASDIRECTED 10/31/18 15:18 C-REACTIVE PROTEIN [CHEM] Stat CBC WITH AUTO DIFF [HEME] Stat PRO B-TYPE NATRIUR PEPT,BNPPRO [CHEM] Stat Plan: Follow up with PCP.
[2018-10-31 17:41] VITALS: BP 136/78
== END 2018-10-31 16:35 | disposition home or self-care (01) ==
LOC: FB.ED 14:51
DX: J44.1 Chronic obstructive pulmonary disease with (acute) exacerbation (principal); E78.00 Pure hypercholesterolemia, unspecified; I10 Essential (primary) hypertension; Z87.891 Personal history of nicotine dependence; Z79.82 Long term (current) use of aspirin; Z79.899 Other long term (current) drug therapy
CPT/HCPCS: 36415; 80048; 83880; 85025; 86140; 94640; 99285; J7620-GY

== ENCOUNTER 2022-06-15 11:10 | Inpatient (IN) | payer MEDICARE, MEDICAID ==
[2022-06-15] MEDS ORDERED: Sodium Chloride 0.9% 10 ML Syringe FLUSH PRN (12:15)
[2022-06-15 12:58] LABS: ESTIMATED GFR 66 mL/min (>60)
[2022-06-15] MEDS: NS + KCl 20mEq/L 1,000 ML IV SCH ×2 (14:44→21:35)
[2022-06-15] MEDS ORDERED: Ondansetron 4 MG/2 ML SDV IV PRN (16:53)
[2022-06-15] MEDS ORDERED: Albuterol/Ipratropium 3.0-0.5 MG/3 ML Neb Soln NEB ONE (17:20)
[2022-06-15] MEDS ORDERED: methylPREDNISolone Sodium Succinate 125 MG/2 ML SDV IVPUSH ONE (17:20)
[2022-06-15] MEDS ORDERED: Albuterol/Ipratropium 3.0-0.5 MG/3 ML Neb Soln NEB PRN (17:22)
[2022-06-15] MEDS ORDERED: Albuterol 0.083% 2.5 MG/3 ML Neb Soln NEB PRN (17:23)
[2022-06-15] MEDS: Enoxaparin 40 MG/0.4 ML Syringe SUBCUT SCH (20:27)
[2022-06-16] MEDS: traMADol 50 MG Tab PO PRN ×2 (03:16→10:39)
[2022-06-16] MEDS: NS + KCl 20mEq/L 1,000 ML IV SCH ×3 (04:22→19:09)
[2022-06-16 06:57] LABS: ESTIMATED GFR 82 mL/min (>60)
[2022-06-16] MEDS: Aspirin 81 MG Tab.EC PO SCH (08:59)
[2022-06-16] MEDS: Gabapentin 300 MG Cap PO SCH (08:59)
[2022-06-16] MEDS: Clopidogrel 75 MG Tab PO SCH (09:00)
[2022-06-16] MEDS: Cholecalciferol (Vitamin D3) 25 MCG Tab PO SCH (09:00)
[2022-06-16] MEDS: Lisinopril 5 MG Tab PO SCH (11:33)
[2022-06-16] MEDS: Acetaminophen 500 MG Tab PO SCH ×4 (11:33→22:22)
[2022-06-16] MEDS: Ibuprofen 200 MG Tab PO SCH ×4 (11:34→22:20)
[2022-06-16] MEDS: Sodium Chloride 0.9% 1,000 ML IV SCH (17:57)
[2022-06-16] MEDS: Enoxaparin 40 MG/0.4 ML Syringe SUBCUT SCH (18:58)
[2022-06-17] MEDS: Sodium Chloride 0.9% 1,000 ML IV SCH ×2 (00:43→07:31)
[2022-06-17] MEDS: Ibuprofen 200 MG Tab PO SCH ×4 (04:52→23:10)
[2022-06-17] MEDS: Acetaminophen 500 MG Tab PO SCH ×4 (04:52→23:10)
[2022-06-17 06:59] LABS: ESTIMATED GFR 66 mL/min (>60)
[2022-06-17] MEDS: Cholecalciferol (Vitamin D3) 25 MCG Tab PO SCH (09:19)
[2022-06-17] MEDS: Gabapentin 300 MG Cap PO SCH (09:20)
[2022-06-17] MEDS: Aspirin 81 MG Tab.EC PO SCH (09:20)
[2022-06-17] MEDS: Clopidogrel 75 MG Tab PO SCH (09:20)
[2022-06-17] MEDS: Lisinopril 5 MG Tab PO SCH (09:21)
[2022-06-17] MEDS: Enoxaparin 40 MG/0.4 ML Syringe SUBCUT SCH (17:30)
[2022-06-18] MEDS: Ibuprofen 200 MG Tab PO SCH ×4 (04:41→23:39)
[2022-06-18] MEDS: Acetaminophen 500 MG Tab PO SCH ×4 (04:41→23:38)
[2022-06-18 06:31] LABS: ESTIMATED GFR 73 mL/min (>60)
[2022-06-18] MEDS: Cholecalciferol (Vitamin D3) 25 MCG Tab PO SCH (08:04)
[2022-06-18] MEDS: Gabapentin 300 MG Cap PO SCH (08:04)
[2022-06-18] MEDS: Lisinopril 5 MG Tab PO SCH (08:04)
[2022-06-18] MEDS: Clopidogrel 75 MG Tab PO SCH (08:04)
[2022-06-18] MEDS: Aspirin 81 MG Tab.EC PO SCH (08:05)
[2022-06-18] MEDS: Enoxaparin 40 MG/0.4 ML Syringe SUBCUT SCH (17:09)
[2022-06-19] MEDS: Ibuprofen 200 MG Tab PO SCH ×4 (05:27→23:16)
[2022-06-19] MEDS: Acetaminophen 500 MG Tab PO SCH ×4 (05:27→23:16)
[2022-06-19] MEDS: Gabapentin 300 MG Cap PO SCH (08:27)
[2022-06-19] MEDS: Clopidogrel 75 MG Tab PO SCH (08:27)
[2022-06-19] MEDS: Aspirin 81 MG Tab.EC PO SCH (08:27)
[2022-06-19] MEDS: Lisinopril 5 MG Tab PO SCH (08:27)
[2022-06-19] MEDS: Cholecalciferol (Vitamin D3) 25 MCG Tab PO SCH (08:27)
[2022-06-19] MEDS: Enoxaparin 40 MG/0.4 ML Syringe SUBCUT SCH (17:03)
[2022-06-20] MEDS: Acetaminophen 500 MG Tab PO SCH ×4 (05:22→23:13)
[2022-06-20] MEDS: Ibuprofen 200 MG Tab PO SCH ×4 (05:23→23:13)
[2022-06-20] MEDS: Aspirin 81 MG Tab.EC PO SCH (08:38)
[2022-06-20] MEDS: Gabapentin 300 MG Cap PO SCH (08:38)
[2022-06-20] MEDS: Cholecalciferol (Vitamin D3) 25 MCG Tab PO SCH (08:38)
[2022-06-20] MEDS: Clopidogrel 75 MG Tab PO SCH (08:38)
[2022-06-20] MEDS: Lisinopril 5 MG Tab PO SCH (08:39)
[2022-06-20] MEDS: Enoxaparin 40 MG/0.4 ML Syringe SUBCUT SCH (17:02)
[2022-06-21] MEDS: Acetaminophen 500 MG Tab PO SCH ×4 (05:03→22:07)
[2022-06-21] MEDS: Ibuprofen 200 MG Tab PO SCH ×4 (05:04→22:07)
[2022-06-21] MEDS: Cholecalciferol (Vitamin D3) 25 MCG Tab PO SCH (08:05)
[2022-06-21] MEDS: Clopidogrel 75 MG Tab PO SCH (08:05)
[2022-06-21] MEDS: Aspirin 81 MG Tab.EC PO SCH (08:05)
[2022-06-21] MEDS: Lisinopril 5 MG Tab PO SCH (08:05)
[2022-06-21] MEDS: Gabapentin 300 MG Cap PO SCH (08:10)
[2022-06-21] MEDS: Enoxaparin 40 MG/0.4 ML Syringe SUBCUT SCH (18:40)
[2022-06-22] MEDS: Ibuprofen 200 MG Tab PO SCH ×4 (05:00→22:12)
[2022-06-22] MEDS: Acetaminophen 500 MG Tab PO SCH ×4 (05:00→22:12)
[2022-06-22] MEDS: Lisinopril 5 MG Tab PO SCH (08:29)
[2022-06-22] MEDS: Aspirin 81 MG Tab.EC PO SCH (08:29)
[2022-06-22] MEDS: Clopidogrel 75 MG Tab PO SCH (08:29)
[2022-06-22] MEDS: Cholecalciferol (Vitamin D3) 25 MCG Tab PO SCH (08:30)
[2022-06-22] MEDS: Gabapentin 300 MG Cap PO SCH (08:33)
[2022-06-22] MEDS: Enoxaparin 40 MG/0.4 ML Syringe SUBCUT SCH (17:30)
[2022-06-23] MEDS: Acetaminophen 500 MG Tab PO SCH (04:44)
[2022-06-23] MEDS: Ibuprofen 200 MG Tab PO SCH (04:44)
[2022-06-23 07:43] VITALS: BP 123/77; PULSE 80
[2022-06-23] MEDS: Cholecalciferol (Vitamin D3) 25 MCG Tab PO SCH (08:24)
[2022-06-23] MEDS: Clopidogrel 75 MG Tab PO SCH (08:24)
[2022-06-23] MEDS: Aspirin 81 MG Tab.EC PO SCH (08:24)
[2022-06-23] MEDS: Lisinopril 5 MG Tab PO SCH (08:24)
[2022-06-23] MEDS: Gabapentin 300 MG Cap PO SCH (08:30)
== END 2022-06-23 09:25 | DRG 565 ==
LOC: FB.ED 11:10 → FB.MS 16:53
PROVIDERS: ADMIT Family Medicine; ATTEND Family Medicine
DX: R29.6 Repeated falls (principal); T79.6XXA Traumatic ischemia of muscle, initial encounter; E87.1 Hypo-osmolality and hyponatremia; S82.001A Unspecified fracture of right patella, initial encounter for closed fracture; S82.001D Unspecified fracture of right patella, subsequent encounter for closed fracture with routine healing; W19.XXXD Unspecified fall, subsequent encounter; S82.832A Other fracture of upper and lower end of left fibula, initial encounter for closed fracture; I10 Essential (primary) hypertension; Z66 Do not resuscitate; Z20.822 Contact with and (suspected) exposure to COVID-19; J44.9 Chronic obstructive pulmonary disease, unspecified; E78.5 Hyperlipidemia, unspecified; Z96.649 Presence of unspecified artificial hip joint; E78.00 Pure hypercholesterolemia, unspecified; M19.90 Unspecified osteoarthritis, unspecified site; E86.0 Dehydration; M54.9 Dorsalgia, unspecified; G89.29 Other chronic pain; H54.7 Unspecified visual loss; E87.6 Hypokalemia; Z86.73 Personal history of transient ischemic attack (TIA), and cerebral infarction without residual deficits; Z79.02 Long term (current) use of antithrombotics/antiplatelets; Z79.82 Long term (current) use of aspirin; Z79.899 Other long term (current) drug therapy; Z87.891 Personal history of nicotine dependence; W19.XXXA Unspecified fall, initial encounter
CPT/HCPCS: 36415; 71045; 73562; 73590; 73610; 80053; 81001; 82550; 84484; 85025; 93005; J3480; J3490; 80048; 94640; 97161-GP; 97165-GO; 97530-GO; 97530-GP; A9270-GY; J1650; J2930; J7030; J7620; U0002